=== PATIENT | female | born 1985 | race Caucasian/White ===

== ENCOUNTER 2023-11-07 05:54 | Inpatient (IN) | payer BC, MEDICAID, SELFPAY ==
[2023-11-07] VITALS (97 sets, daily range): BP systolic 127–214; BP diastolic 73–119; PULSE 64–102; TEMP 36–36.9; O2SAT 99–100; BMI 32.1
--- NOTE | 2023-11-07 07:00 | PM.OBGYHP ---
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 Reports they have been getting stronger and closer together. She does report some vaginal bleeding in the form of brown discharge which started after her contractions started. She reports good movement. She denies headache, vision changes, RUQ pain. She does report LE edema that started around 6 months gestation and reports her care provider has been watching it closely and checking her urine for protein which has been normal. She reports care has been good with a physician in [place]. She denies complications in this other than Her prior was complicated by pre-eclampsia- she does not recall if she was treated with magnesium. She was started on 81mg ASA in this but stopped taking because it kept waking her up at night. She reports her labs have been normal and her GBS culture was negative. 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 PFSH: Medical History History of pre-eclampsia Surgical History Hx of appendectomy History History History 2 Term 1 0 Miscarriages/Ectopic 0 Living Children 1 Vitals/I&O/Wt Last Vital Signs Pulse 72 11/07/23 06:56 BP 168/97 11/07/23 06:56 O2 Del Method Room Air 11/07/23 05:27 Weight last 48 hrs Weight 218 lb Physical Exam Narrative: FHT Category 1- baseline 125, moderate variability, +accel, no decels Const: COMMON NORMALS: healthy appearing, alert and well nourished OTHER: in discomfort with contractions Resp: COMMON NORMALS: normal respiratory effort and clear to auscultation bilaterally Cardio: COMMON NORMALS: regular rate, regular rhythm, S1 normal heart sound present, S2 normal heart sound present and No murmurs present (Cardio) GI: OTHER: Gravid, uterine size consistent with dates Admission SVE reported 3/50/-3 per nursing Extremity: NARRATIVE EXTREMITY EXAM: 2+ pitting edema to level of the knees Psych: COMMON NORMALS: mental status grossly normal Data 11/07/23 06:45 11/07/23 06:45 Results Labs OB ([facility]): Blood Type Pending 11/07/23 Antibody Screen Pending 11/07/23 Hct 39.1 % (36-47) 11/07/23 Hgb 13.60 g/dL (11.27-16.99) 11/07/23 Rho(D) Type Pending 11/07/23 Plt Count 182 10^3/cmm (157-399) 11/07/23 Uric Acid Pending 11/07/23 A&P Assessment and plan (1) Term : (2) Elevated blood pressure complicating in third trimester, antepartum: (3) Uterine contractions: Plan 38yo at 39w2d admitted for labor. Complicated by elevated blood pressures on admission. There have been non-sustained severe range blood pressures which is complicated by pain from her contractions. Case has been discussed with Dr. Ward- plan to consult for any severe features as they identified. Routine CBC, type and screen, pre-eclampsia work-up with additional CMP, Uric Acid, Urine Pr/Cr. As we do not have prental labs at this time basic labs will be sent as well. Since admission FHT have been Category I. Continuous EFM. Monitor BP- report any severe range BPs. Reported GBS negative- GBS ppx not indicated. Fentanyl protocol for pain control, May have epidural as desired. Expectant management otherwise at this time- if no SVE progression on next change, consider pitocin augmentation. Attestations Medical Necessity Statement*: darryl rincon's hospital stay will require greater than 2 midnights for labor and delivery and care Coding Level of Care Code Acute Code for Chg Fwd Diagnoses Term Z34.90 Elevated blood pressure complicating in third trimester, antepartum O16.3 Uterine contractions O47.9
[2023-11-07 07:02] LABS: Basophils % 0.3 %; Eosinophils # 0.1 10^3/uL (0.0-0.8); Eosinophils % 1.1 %; Hematocrit 39.1 % (36-47); Lymphocytes # 1.3 10^3/uL (0.8-4.8); Lymphocytes % 12.8 %; Mean Corpuscular HGB Conc 34.8 g/dL (30-55); Mean Corpuscular Hemoglobin 33.6 pg (27-33); Mean Corpuscular Volume 96.5 fl (85-98); Mean Platelet Volume 12.1 fL (7.4-10.4); Monocytes # 0.5 10^3/uL (0.2-0.9); Monocytes % 5.4 %; Neutrophils # 8.03 10^3/uL (1.8-7.7); Neutrophils % 79.7 %; Nucleated Red Blood Cells % 0 %; Platelet Count 182 10^3/cmm (157-399); Red Blood Count 4.05 10^6/uL (3.85-5.65); White Blood Count 10.07 10^3/uL (3.29-11.43)
[2023-11-07 07:04] LABS: Glucose Urine UA Norm (Normal); Ketones Urine Negative (Negative); Protein Urine Neg (Negative); Specific Gravity, Urine 1.005 (1.005-1.030); Urine Appearance Clear (CLEAR); Urine Color Colorless (Yellow); pH Urine 7 (5-7)
[2023-11-07] MEDS: lactated ringers 1,000 ML 999 ML IV (07:04)
[2023-11-07 07:05] LABS: Add Urine Culture? No; Add Urine Microscopic? YES; Bacteria Urine TRACE /hpf; Bilirubin Urine Neg (Negative); Blood Urine 3+ (Negative); Leukocyte Esterase Urine Negative (Negative); Nitrate Urine Negative (Negative); RBC Urine 0-4 /hpf (0-2); Squamous Epithelial Cell Urine RARE /hpf (0-5); Urobilinogen Urine Norm (Negative)
[2023-11-07 07:18] LABS: Urine Creatinine 18 mg/dL (28-217); Urine Protein Random 12 mg/dL
[2023-11-07 07:18] LABS: Alanine Aminotransferase 25 U/L (0-33); Albumin Level 3.6 g/dL (3.5-5.2); Alkaline Phosphatase 313 U/L (35-105); Anion Gap 17.2 (5-19); Aspartate Amino Transferase 31 U/L (0-32); Blood Urea Nitrogen 9 mg/dL (6-20); Calcium 8.9 mg/dL (8.5-10.5); Carbon Dioxide 20 mmol/L (22-29); Chloride 102 mmol/L (98-107); Creatinine Clr Calc Pharmacy 136.3688; Globulin 3.3 g/dL (1.3-4.6); Glomerular Filtration Rate 93.6 mL/min (90-130); Glucose 89 mg/dL (65-115); Osmolality Calculated 278 mOsm/kg (285-295); Potassium 4.2 mmol/L (3.5-5.1); Sodium 135 mmol/L (136-145); Total Bilirubin 0.3 mg/dL (0.15-1.2); Total Protein 6.9 g/dL (6.6-8.7); Uric Acid 4.6 mg/dL (2.4-5.7)
--- NOTE | 2023-11-07 07:26 | PM.MISC ---
Miscellaneous Note Purpose of Documentation: Transfer of Care Note: Following initial H&P patient noted to have sustained severe range blood pressures. Case further discussed with Dr. Ward and decision made to transfer care and primary admission to Dr. Ward. He indicated acceptance. All further management of labor, delivery and care is transferred to Dr. Ward at this time.
[2023-11-07 07:38] LABS: UPRO/UCREAT Ratio 0.67 mg/mg CR
[2023-11-07] MEDS: ondansetron 2 mg/ML SDV 2 mL 4 MG IVP ×2 (08:04→14:27)
[2023-11-07] MEDS: dextrose 5%-lactated ringers 1,000 ML 125 ML IV (08:10)
[2023-11-07] MEDS: labetalol 5 mg/mL SDV 20mL 20 MG IVP ×3 (08:11→19:01)
[2023-11-07] MEDS: ROPivacaine syringe 100 MG/50 ML SYRINGE 10 MG EPIDURAL ×3 (08:35→16:56)
--- NOTE | 2023-11-07 08:46 | P.ANESASSM_ITS ---
Pre-Anesthetic Assessment Height/Weight: Height 1.75 m Weight 98.883 kg Temp Pulse BP Pulse Ox O2 Del Method 98.1 F 80 149/98 100 Room Air 11/07/23 07:09 11/07/23 08:34 11/07/23 08:34 11/07/23 08:33 11/07/23 05:27 Preop Diagnosis: Active Labor IUP Labor Epidural Familial anesthetic complications: None Was Beta Don taken within 24 hours: Yes Social No alcohol and No tobacco Exam alert, oriented x 3 and clear to auscultation bilaterally Airway Submandibular: within normal limits Cervical ROM: within normal limits Mallampati: Class II Dentition: full History/ROS No significant history except as noted Pulmonary None reported CV/HEM None reported None reported Hepatic None reported GI Gastroesophageal Reflux Disease Metabolic None reported Musc/skel None reported Neuropsych None reported Anesthetic Plan ASA status: 3 Anesthesia: Regional (specify below) Other: Labor Epidural Medications/Allergies Home Medications Medication Instructions Recorded Confirmed Last Taken Type No Known Home Medications 11/07/23 11/07/23 Unknown History Allergies Allergy/AdvReac Type Severity Reaction Status Date / Time Penicillins Allergy ADR-Vomitin Verified 11/07/23 09:08 g Current Medications Generic Name Dose Route Start Last Admin Trade Name Freq PRN Reason Stop Dose Admin Lactated Ringer's 1,000 mls @ 999 mls/hr 11/07/23 07:03 11/07/23 07:04 Lactated Ringers IV 999 mls/hr .Q1H1M PRN Administration See label comments Labetalol HCl 20 mg 11/07/23 05:57 11/07/23 08:11 Labetalol 5 Mg/Ml Sdv 20ml IVP 20 mg PRN PRN Administration HYPERTENSION Protocol Ondansetron HCl 4 mg 11/07/23 05:54 11/07/23 08:04 Ondansetron 2 Mg/Ml Sdv 2 Ml IVP 4 mg Q4H PRN Administration NAUSEA AND VOMITING Additional Medication Information Patient denies diagnosis of pre-eclampsia in current , however her protein creatinine ration is elevated. Presents in active labor with elevated blood pressures labetalol given prior to epidural. [facility] Anesthesia Medical History History of pre-eclampsia Surgical History Hx of appendectomy Female Reproductive History : 2 Data Anesthesia 11/07/23 06:45 11/07/23 06:45 Short CBC 11/07/23 Range/Units 06:45 WBC 10.07 (3.29-11.43) 10^3/uL Hgb 13.60 (11.27-16.99) g/dL Hct 39.1 (36-47) % MCV 96.5 (85-98) fl Plt Count 182 (157-399) 10^3/cmm Neut % (Auto) 79.7 % Neut # (Auto) 8.03 H (1.8-7.7) 10^3/uL BMP 11/07/23 06:45 Sodium 135 L Potassium 4.2 Chloride 102 Carbon Dioxide 20 L BUN 9 Creatinine 0.7 Glucose 89 Calcium 8.9 Liver Function 11/07/23 Range/Units 06:45 Total Bilirubin 0.3 (0.15-1.2) mg/dL AST 31 (0-32) U/L ALT 25 (0-33) U/L Alkaline Phosphatase 313 H (35-105) U/L Albumin 3.6 (3.5-5.2) g/dL Urine 11/07/23 Range/Units 05:30 Urine Color Colorless (Yellow) Urine Appearance Clear (CLEAR) Urine pH 7 (5-7) Ur Specific [place] 1.005 (1.005-1.030) Urine Protein Neg (Negative) Urine Glucose (UA) Norm (Normal) Urine Ketones Negative (Negative) Urine Nitrate Negative (Negative) Urine Bilirubin Neg (Negative) Ur Leukocyte Esterase Negative (Negative) Urine RBC 0-4 H (0-2) /hpf Urine WBC None (0-5) /hpf Blood Bank 11/07/23 06:45 Blood Type O Positive Rho(D) Type Rh positive Antibody Screen Negative Cardiac Studies: 2 No Data to Display Anesthesia Procedures Epidural Time Out Performed: Yes Consents Signed: Procedure Consent Consent: from patient, risks and benefits reviewed and patient agrees to proceed Lumbar Level: L3-L4 Epidural position: sitting Epidural procedure: sterile prep of area, 1% lidocaine to numb the area, negative for paresthesia passed, test dose given, 1.5% xylocaine 1:200k epi, placed PCEA, no systemic response, sterile dressing applied, L.U.D. no apparent complications and 0.2% Ropiavacaine @ mls/hr (10) Additional Comments: CARO at 7 cm on second attempt catheter threaded to 12cm. 100mcg Fentanyl given with remaining lidocaine and saline in epidural kit. Sterile dressing applied, adequate pain relief achieved.
[2023-11-07] MEDS: magnesium sulfate premix 4 GM/100 ML PREMIX IV (08:49)
[2023-11-07] MEDS: magnesium sulfate premix 20 GM/500 ML BAG IV ×2 (09:19→19:00)
--- NOTE | 2023-11-07 09:20 | PM.OBGYHP ---
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 EDC November 11, 2023 At 39 w 3 d care in [place] with Dr. Jorgensen Had early dating ultrasound No complications Had normal 1-h glucola Has negative GBS Presents to L&D c/o painful UCs No fluid leakage, bleeding + swelling in lower extremities + active movements POBHx: x one at term, had elevated BPs at term, [place], [place] PMHx: none PSHx: appendectomy Present Details : 2 Para: 1 Labs Rubella: Immune RPR: Negative GBS: Negative Medications/Allergies Home Medications Medication Instructions Recorded Confirmed Last Taken Type No Known Home Medications 11/07/23 11/07/23 Unknown History Allergies Allergy/AdvReac Type Severity Reaction Status Date / Time Penicillins Allergy ADR-Vomitin Verified 11/07/23 09:08 g PFSH 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 PFSH: Medical History History of pre-eclampsia Surgical History Hx of appendectomy History History History 2 Term 1 0 Miscarriages/Ectopic 0 Living Children 1 Vitals/I&O/Wt Last Vital Signs Temp 98.2 F 11/07/23 21:36 Pulse 76 11/08/23 05:06 BP 131/72 11/08/23 05:06 Pulse Ox 100 11/07/23 08:33 O2 Del Method Room Air 11/07/23 07:00 11/07/23 11/07/23 11/08/23 14:59 22:59 06:59 Intake Total 1296.583 / 2820.425 5008.033 / 2922.616 Output Total 400 / 400 930 / 1330 1125 / 2455 Balance 896.583 / 896.583 696.033 / 1592.616 -1125 / 467.616 Weight last 48 hrs Weight 218 lb Physical Exam Narrative: Weight 218 lbs; 5?8? BPs 180 / 101, 179 / 103, 176 / 98, 177 / 82 Awake, alert, appropriate In discomfort due to uterine contractions HEENT normal Lungs: clear Cor: RRR Abd: nontender Fundal height 37 cm, cephalic Cervix: 5 cm / 50% / -3 Ext: 2-3 + edema to knees External monitor: + regular UCs heart tracing good variability, + accelerations Urinary Catheter Management: Mahajan: Cath Placed During This Visit: yes, but has since been removed by the nurse Reason for Continuing Indwelling Catheter: Accurate Measurement of Urinary Output in Critically Ill Patients Urinary Catheter Date of Insertion: 11/07/23 Urinary Catheter Time of Insertion: 18:00 Date Urinary Catheter Removed: 11/07/23 Time Urinary Catheter Discontinued: 15:34 Data 11/07/23 06:45 11/07/23 06:45 Results Labs OB ([facility]): Blood Type O Positive 11/07/23 Antibody Screen Negative 11/07/23 Hct 39.1 % (36-47) 11/07/23 Hgb 13.60 g/dL (11.27-16.99) 11/07/23 Rho(D) Type Rh positive 11/07/23 Plt Count 182 10^3/cmm (157-399) 11/07/23 Hep Bs Antigen Non-reactive (Nonreactive) 11/07/23 Rubella IgG Antibody 59.5 IU/mL (0.0-10.0) H 11/07/23 RPR Nonreactive (Nonreactive) 11/07/23 HIV 1&2 Ab & HIV 1 Ag Non-reactive (Non-Reactiv) 11/07/23 C.trachomatis RNA (TMA) Pending 11/07/23 N.gonorrhoeae RNA (TMA) Pending 11/07/23 Chlamydia/GC Comment Pending 11/07/23 Uric Acid 4.6 mg/dL (2.4-5.7) 11/07/23 Urine Opiates Screen Negative ng/mL (Negative) 11/07/23 Ur Barbiturates Screen Negative ng/mL (Negative) 11/07/23 Ur Phencyclidine Scrn Negative ng/mL (Negative) 11/07/23 Ur Amphetamines Screen Negative ng/mL (Negative) 11/07/23 U Benzodiazepines Scrn Negative ng/mL (Negative) 11/07/23 Urine Cocaine Screen Negative ng/mL (Negative) 11/07/23 U Marijuana (THC) Screen Positive ng/mL (Negative) H 11/07/23 A&P Assessment and plan (1) Uterine contractions: 39 w 3 d Fetus reassuring Active labor (2) Term : (3) Elevated blood pressure complicating in third trimester, antepartum: Patient with pre-eclampsia Start MgSO4, 4 Gms bolus, 2 Gms / hr Patient requests epidural Attestations Medical Necessity Statement*: patient at 39+ weeks, presents with active labor, with pre-eclampsia Coding Level of Care Code Acute Code for Chg Fwd Diagnoses Uterine contractions O47.9 Term Z34.90 Elevated blood pressure complicating in third trimester, antepartum O16.3 Time Spent (min) 90
[2023-11-07 10:28] LABS: Amphetamines Screen Urine Negative (Negative); Barbiturates Screen Urine Negative (Negative); Benzodiazepines Screen Urine Negative (Negative); Cocaine Screen Urine Negative (Negative); Opiate Screen Urine Negative (Negative); PCP Screen Urine Negative (Negative); THC Screen Urine Positive (Negative)
[2023-11-07 10:49] LABS: Rapid Plasma Reagin Syphilis Nonreactive (Nonreactive)
[2023-11-07 10:56] LABS: HIV 1 & 2 Antibody Non-Reactive (Non-Reactiv); HIV 1 & 2 Antigen Non-Reactive (Non-Reactiv)
[2023-11-07 11:03] LABS: Rubella IgG 59.5 IU/mL (0.0-10.0)
[2023-11-07 11:43] LABS: Hepatitis B Surface Antigen Non-Reactive (Nonreactive)
[2023-11-07] MEDS: oxytocin 30 UNIT/500 ML BAG IV (12:45)
[2023-11-07] MEDS: acetaminophen 325 mg Tablet 650 MG PO ×2 (13:17→21:03)
--- NOTE | 2023-11-07 18:05 | PM.DELIVERY ---
Delivery Note: Date of delivery: November 07, 2023 Pre-delivery diagnoses: 39 w 3 d active labor preeclampsia Post-delivery diagnoses: same as above vaginal delivery Procedure: labor augmentation vaginal delivery Op report anesthesia: Epidural Delivering Physician: Kevin Ward MD Estimated blood loss (mL): 300 Findings: , vigorous Normal placenta and cord Cord gases and blood obtained No episiotomy 2 cm laceration inferior to clitoris + bleeding Well-controlled with pressure No sutures used EBL: 300 cc No complications Pre-Delivery Course: normal labor progress Delivery: vaginal Post-Delivery Status: good History History History 2 Term 1 0 Miscarriages/Ectopic 0 Living Children 1 A&P Assessment and plan (1) Vaginal delivery: plan care (2) Elevated blood pressure complicating in third trimester, antepartum: plan continue MgSo4 x 24 hours plan Procardia 30 mg XL one PO daily Coding Level of Care Code Acute Code for Chg Fwd Diagnoses Vaginal delivery O80 Elevated blood pressure complicating in third trimester, antepartum O16.3 Time Spent (min) 90
[2023-11-07] MEDS: NIFEdipine ER (24 hr) 30 mg Tablet PO (21:03)
[2023-11-08] VITALS (30 sets, daily range): BP systolic 111–173; BP diastolic 68–87; PULSE 63–97; RESP 16; TEMP 36.6; O2SAT 99
[2023-11-08] MEDS: acetaminophen 325 mg Tablet 650 MG PO ×2 (03:16→10:19)
[2023-11-08] MEDS: dextrose 5%-lactated ringers 1,000 ML 100 ML IV (07:38)
[2023-11-08] MEDS: magnesium sulfate premix 20 GM/500 ML BAG IV (07:41)
[2023-11-08 07:49] LABS: Mean Corpuscular HGB Conc 34.5 g/dL (30-55); Mean Corpuscular Hemoglobin 33.7 pg (27-33); Mean Corpuscular Volume 97.6 fl (85-98); Mean Platelet Volume 12.3 fL (7.4-10.4); Platelet Count 188 10^3/cmm (157-399); Red Blood Count 3.38 10^6/uL (3.85-5.65); Red Cell Distribution Width 13.4 % (12.1-15.1); White Blood Count 15.78 10^3/uL (3.29-11.43)
[2023-11-08] MEDS: docusate sodium 100 mg Capsule PO ×2 (10:19→18:19)
[2023-11-08] MEDS: NIFEdipine ER (24 hr) 30 mg Tablet PO (10:19)
[2023-11-08] MEDS: prenatal vitamin Capsule 1 CAP PO (10:19)
[2023-11-08] MEDS: ibuprofen 800 mg tablet PO ×3 (10:19→20:04)
--- NOTE | 2023-11-08 12:05 | P.PN_ITS ---
BREASTER Subjective 2 Subjective: Interval history: no c/o no headaches, dizziness, nausea, abdominal pain, bleeding normal lochia eating, voiding, ambulating well Labor: Station: 0 Amniotic Membrane Status: Ruptured Monitor Mode: External Contraction Pattern: Irregular Vitals/I&O/Wt Last Vital Signs Temp 98.3 F 11/09/23 13:00 Pulse 76 11/09/23 13:00 Resp 16 11/09/23 13:00 BP 143/83 11/09/23 13:00 Pulse Ox 98 11/09/23 13:00 O2 Del Method Room Air 11/08/23 21:00 Physical Exam 2 Narrative: afebrile BPs 139 / 72, 139 / 81, 129 / 70 comfortable, awake, alert Abd: soft, nontender. fundus firm Ext: 1+ edema; nontender Urinary Catheter Management: Mahajan: Cath Placed During This Visit: yes, but has since been removed by the nurse Reason for Continuing Indwelling Catheter: Decision to DC Catheter Urinary Catheter Date of Insertion: 11/07/23 Urinary Catheter Time of Insertion: 18:00 Date Urinary Catheter Removed: 11/08/23 Time Urinary Catheter Discontinued: 18:00 Data 11/08/23 05:35 11/07/23 06:45 A&P Assessment and plan (1) Vaginal delivery: PPD #1 doing well normal course continue care (2) Preeclampsia: BPs much better after starting Procardia 30 mg XL Plan continue MgSO4 for 24-hours after delivery Attestations 2 Medical Necessity Statement*: patient with preeclampsia at term, s/p vaginal delivery Coding Level of Care Code Acute Code for Chg Fwd Diagnoses Vaginal delivery O80 Preeclampsia O14.90 Time Spent (min) 30
[2023-11-08 17:00] LABS: Chlamydia Trachomatis RNA TMA NOT DETECTED (NOT DETECTED); Neisseria Gonorrhoeae RNA, TMA NOT DETECTED (NOT DETECTED)
[2023-11-08] MEDS: lanolin oint 7 gm 1 APPLIC TOPICAL (20:03)
[2023-11-08] MEDS: benzocaine-menthol 78 gm Canister 1 SPRAY TOPICAL (20:03)
[2023-11-09 06:01] VITALS: BP 127/79; PULSE 64; PULSE 72; O2SAT 98
[2023-11-09] MEDS: ibuprofen 800 mg tablet PO (08:22)
[2023-11-09] MEDS: docusate sodium 100 mg Capsule PO (08:22)
[2023-11-09] MEDS: prenatal vitamin Capsule 1 CAP PO (08:22)
[2023-11-09] MEDS: NIFEdipine ER (24 hr) 30 mg Tablet PO (08:25)
[2023-11-09 10:00] VITALS: BP 156/84; PULSE 76; RESP 16; TEMP 36.4; O2SAT 98
[2023-11-09 13:00] VITALS: BP 143/83; PULSE 76; RESP 16; TEMP 36.8; O2SAT 98
--- NOTE | 2023-11-09 13:35 | P.PN_ITS ---
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 fundus firm Ext: 1+ edema; nontender Urinary Catheter Management: Mahajan: Cath Placed During This Visit: yes, but has since been removed by the nurse Reason for Continuing Indwelling Catheter: Decision to DC Catheter Urinary Catheter Date of Insertion: 11/07/23 Urinary Catheter Time of Insertion: 18:00 Date Urinary Catheter Removed: 11/08/23 Time Urinary Catheter Discontinued: 18:00 Data 11/08/23 05:35 11/07/23 06:45 A&P Assessment and plan (1) Vaginal delivery: PPD #2 doing well discharge to home today instructions and precautions given call/return if fever, chills, headache, blurry vision, nausea, vomiting, abdominal pain; vaginal bleeding or discharge; shortness of breath, chest pain, leg pains or swelling; inability to void, perineal pain or swelling; feelings of depression or mood changes; thoughts of suicide or harming others; inability to care for baby. (2) Preeclampsia: Continue Procardia 30 mg XL one po daily Return for BP check and exam in one week Attestations 2 Medical Necessity Statement*: patient at term with preeclampsia, s/p vaginal delivery, plan discharge to home today Coding Level of Care Code Acute Code for Chg Fwd Diagnoses Vaginal delivery O80 Preeclampsia O14.90 Time Spent (min) 20
--- NOTE | 2023-11-09 13:40 | PM.OBGYDC ---
Discharge Providers WORKERS COMPENSATION CLAIMS EXAMINER Date of Admission: 11/07/23 05:54 Date of Discharge: 11/09/23 Attending Provider at Admission: Marva Jacobsen DO Attending Provider at Discharge: Kevin Ward MD Primary Care Provider: Marva Jacobsen DO Diagnoses at Discharge Discharge Diagnosis (1) Vaginal delivery: Details from hospital stay: 38 y.o. at 39 w 3 d admitted with active labor had significantly elevated BPs diagnosed with preeclampsia started on MgSO4 proceeded to vaginal delivery started on Procardia 30 mg XL daily for continued elevated BPs in the immediate period did well without any complications patient was discharged to home on PPD #2 Status: Acute (2) Preeclampsia: Details from hospital stay: 38 y.o. at 39 w 3 d admitted with active labor had significantly elevated BPs diagnosed with preeclampsia started on MgSO4 proceeded to vaginal delivery started on Procardia 30 mg XL daily for continued elevated BPs in the immediate period did well without any complications patient was discharged to home on PPD #2 Status: Acute Reason for Visit Reason for Visit: brown bleeding, contractions Brief History: 38 y.o. at 39 w 3 d admitted with active labor Hospital Course Hospital Course 38 y.o. at 39 w 3 d admitted with active labor had significantly elevated BPs diagnosed with preeclampsia started on MgSO4 proceeded to vaginal delivery started on Procardia 30 mg XL daily for continued elevated BPs in the immediate period did well without any complications patient was discharged to home on PPD #2 Information Peripartum Data: Infant Delivery Method: Vaginal Laceration description: Periurethral - 1st Degree Episiotomy description: None complications: none Physical Exam Narrative: afebrile, BPs normal comfortable, awake, alert Abd: soft, nontender. fundus firm Ext: 1+ edema; nontender Urinary Catheter Management: Mahajan: Cath Placed During This Visit: yes, but has since been removed by the nurse Reason for Continuing Indwelling Catheter: Decision to DC Catheter Urinary Catheter Date of Insertion: 11/07/23 Urinary Catheter Time of Insertion: 18:00 Date Urinary Catheter Removed: 11/08/23 Time Urinary Catheter Discontinued: 18:00 History History History 2 Term 1 0 Miscarriages/Ectopic 0 Living Children 1 Discharge Data Studies Completed and Pending Laboratory Results WBC 15.78 10^3/uL (3.29-11.43) H 11/08/23 05:35 RBC 3.38 10^6/uL (3.85-5.65) L 11/08/23 05:35 Hgb 11.40 g/dL (11.27-16.99) 11/08/23 05:35 Hct 33.0 % (36-47) L 11/08/23 05:35 MCV 97.6 fl (85-98) 11/08/23 05:35 MCH 33.7 pg (27-33) H 11/08/23 05:35 MCHC 34.5 g/dL (30-55) 11/08/23 05:35 RDW 13.4 % (12.1-15.1) 11/08/23 05:35 Plt Count 188 10^3/cmm (157-399) 11/08/23 05:35 MPV 12.3 fL (7.4-10.4) H 11/08/23 05:35 Neut % (Auto) 79.7 % 11/07/23 06:45 Lymph % (Auto) 12.8 % 11/07/23 06:45 [place] % (Auto) 5.4 % 11/07/23 06:45 Eos % (Auto) 1.1 % 11/07/23 06:45 Baso % (Auto) 0.3 % 11/07/23 06:45 Neut # (Auto) 8.03 10^3/uL (1.8-7.7) H 11/07/23 06:45 Lymph # (Auto) 1.3 10^3/uL (0.8-4.8) 11/07/23 06:45 [place] # (Auto) 0.5 10^3/uL (0.2-0.9) 11/07/23 06:45 Eos # (Auto) 0.1 10^3/uL (0.0-0.8) 11/07/23 06:45 Baso # (Auto) 0.0 10^3/uL (0.0-0.1) 11/07/23 06:45 Nucleated RBC % (auto) 0 % 11/07/23 06:45 Nucleated RBCs # 0.0 /100WBC 11/07/23 06:45 Sodium 135 mmol/L (136-145) L 11/07/23 06:45 Potassium 4.2 mmol/L (3.5-5.1) 11/07/23 06:45 Chloride 102 mmol/L (98-107) 11/07/23 06:45 Carbon Dioxide 20 mmol/L (22-29) L 11/07/23 06:45 Anion Gap 17.2 (5-19) 11/07/23 06:45 BUN 9 mg/dL (6-20) 11/07/23 06:45 Creatinine 0.7 mg/dL (0.5-0.9) 11/07/23 06:45 GFR Calculation 93.6 mL/min (90-130) 11/07/23 06:45 Glucose 89 mg/dL (65-115) 11/07/23 06:45 Calculated Osmolality 278 mOsm/kg (285-295) L 11/07/23 06:45 Uric Acid 4.6 mg/dL (2.4-5.7) 11/07/23 06:45 Calcium 8.9 mg/dL (8.5-10.5) 11/07/23 06:45 Total Bilirubin 0.3 mg/dL (0.15-1.2) 11/07/23 06:45 AST 31 U/L (0-32) 11/07/23 06:45 ALT 25 U/L (0-33) 11/07/23 06:45 Alkaline Phosphatase 313 U/L (35-105) H 11/07/23 06:45 Total Protein 6.9 g/dL (6.6-8.7) 11/07/23 06:45 Albumin 3.6 g/dL (3.5-5.2) 11/07/23 06:45 Globulin 3.3 g/dL (1.3-4.6) 11/07/23 06:45 Urine Color Colorless (Yellow) 11/07/23 05:30 Urine Appearance Clear (CLEAR) 11/07/23 05:30 Urine pH 7 (5-7) 11/07/23 05:30 Ur Specific [place] 1.005 (1.005-1.030) 11/07/23 05:30 Urine Protein Neg (Negative) 11/07/23 05:30 Urine Glucose (UA) Norm (Normal) 11/07/23 05:30 Urine Ketones Negative (Negative) 11/07/23 05:30 Urine Blood 3+ (Negative) H 11/07/23 05:30 Urine Nitrate Negative (Negative) 11/07/23 05:30 Urine Bilirubin Neg (Negative) 11/07/23 05:30 Urine Urobilinogen Norm mg/dL (Negative) 11/07/23 05:30 Ur Leukocyte Esterase Negative (Negative) 11/07/23 05:30 Urine RBC 0-4 /hpf (0-2) H 11/07/23 05:30 Urine WBC None /hpf (0-5) 11/07/23 05:30 Ur Squamous Epith Cells Rare /hpf (0-5) 11/07/23 05:30 Amorphous Sediment Not Reportable 11/07/23 05:30 Urine Bacteria Trace /hpf (NONE) 11/07/23 05:30 U Random Total Protein 12 mg/dL 11/07/23 05:30 Urine Creatinine 18 mg/dL (28-217) L 11/07/23 05:30 Protein/Creatinin Ratio 0.67 mg/mg CR 11/07/23 05:30 Urine Opiates Screen Negative ng/mL (Negative) 11/07/23 05:30 Ur Barbiturates Screen Negative ng/mL (Negative) 11/07/23 05:30 Ur Phencyclidine Scrn Negative ng/mL (Negative) 11/07/23 05:30 Ur Amphetamines Screen Negative ng/mL (Negative) 11/07/23 05:30 U Benzodiazepines Scrn Negative ng/mL (Negative) 11/07/23 05:30 Urine Cocaine Screen Negative ng/mL (Negative) 11/07/23 05:30 U Marijuana (THC) Screen Positive ng/mL (Negative) H 11/07/23 05:30 RPR Nonreactive (Nonreactive) 11/07/23 06:45 C.trachomatis RNA (TMA) Not detected (NOT DETECTED) 11/07/23 05:30 Chlamydia/GC Comment See note 11/07/23 05:30 Hep Bs Antigen Non-reactive (Nonreactive) 11/07/23 06:45 HCV RNA (PCR) IUs/ml <1.18 not detected Log IU/mL (NOT DETECTED) 11/07/23 06:45 HCV RNA (PCR) IU log10 <15 not detected IU/mL (NOT DETECTED) 11/07/23 06:45 HIV 1&2 Ab & HIV 1 Ag Non-reactive (Non-Reactiv) 11/07/23 06:45 HIV 1&2 Antibody Non-reactive (Non-Reactiv) 11/07/23 06:45 N.gonorrhoeae RNA (TMA) Not detected (NOT DETECTED) 11/07/23 05:30 Rubella IgG Antibody 59.5 IU/mL (0.0-10.0) H 11/07/23 06:45 Blood Type O Positive 11/07/23 06:45 Rho(D) Type Rh positive 11/07/23 06:45 Antibody Screen Negative 11/07/23 06:45 Procedures Performed labor augmentation vaginal delivery MgSO4 IV Vitals Last Vital Signs Temp 98.3 F 11/09/23 13:00 Pulse 76 11/09/23 13:00 Resp 16 11/09/23 13:00 BP 143/83 11/09/23 13:00 Pulse Ox 98 11/09/23 13:00 O2 Del Method Room Air 11/08/23 21:00 Results Labs OB ([facility]): Blood Type O Positive 11/07/23 Antibody Screen Negative 11/07/23 Hct 33.0 % (36-47) L 11/08/23 Hgb 11.40 g/dL (11.27-16.99) 11/08/23 Rho(D) Type Rh positive 11/07/23 Plt Count 188 10^3/cmm (157-399) 11/08/23 Hep Bs Antigen Non-reactive (Nonreactive) 11/07/23 Rubella IgG Antibody 59.5 IU/mL (0.0-10.0) H 11/07/23 RPR Nonreactive (Nonreactive) 11/07/23 HIV 1&2 Ab & HIV 1 Ag Non-reactive (Non-Reactiv) 11/07/23 C.trachomatis RNA (TMA) Not detected (NOT DETECTED) 11/07/23 N.gonorrhoeae RNA (TMA) Not detected (NOT DETECTED) 11/07/23 Chlamydia/GC Comment See note 11/07/23 Uric Acid 4.6 mg/dL (2.4-5.7) 11/07/23 Urine Opiates Screen Negative ng/mL (Negative) 11/07/23 Ur Barbiturates Screen Negative ng/mL (Negative) 11/07/23 Ur Phencyclidine Scrn Negative ng/mL (Negative) 11/07/23 Ur Amphetamines Screen Negative ng/mL (Negative) 11/07/23 U Benzodiazepines Scrn Negative ng/mL (Negative) 11/07/23 Urine Cocaine Screen Negative ng/mL (Negative) 11/07/23 U Marijuana (THC) Screen Positive ng/mL (Negative) H 11/07/23 Discharge Plan Discharge Patient Disposition: Home Condition: Stable Prescriptions: New Procardia XL 30 mg tablet extended release 24hr 30 mg PO DAILY Qty: 30 0RF Discharge Orders: Discharge Order (Routine); Ordered 11/09/23 Ordered By: Kevin Ward Referrals: Kevin Ward MD [Physician] - (November 16 at 1:[address] Ward.) Discharge Diet: Usual diet Discharge Activity: Increase activity as tolerated Patient Instructions: Depression (DC), Preeclampsia and Eclampsia After Delivery (GEN), Hemorrhage (DC), OB Discharge Report, OB Food/Drug Interaction Guide, OB Care at Home, Opioid Safety, OB Vaginal Deliveries, Abnormal Bleeding Discharge Attestations WORKERS COMPENSATION CLAIMS EXAMINER Time Spent in Discharge Care*: less than 30 min Coding Level of Care Code Acute Code for Chg Fwd Diagnoses Vaginal delivery O80 Preeclampsia O14.90 Time Spent (min) 20
[2023-11-09 14:55] LABS: HEP C RNA Viral Load Quant <1.18 NOT DETECTED Log IU/mL (NOT DETECTED); HEP C RNA Viral Load Quant <15 NOT DETECTED IU/mL (NOT DETECTED)
--- NOTE | 2023-11-10 06:57 | ANE.PACU2 ---
Inpatient post-anesthesia follow up: Airway intact: Yes Vital signs: Temperature 98.3 F Pulse Rate 76 Respiratory Rate 16 Blood Pressure 143/83 Pulse Oximetry 98 Oxygen Delivery Me thod Room Air Oxygen Flow Rate Fraction of Inspir ed Oxygen Hydration adequate: Yes Nausea and vomiting: No Pain level: 1 Mental status: Baseline Epidural Start/End: Epidural Start Date: 11/07/23 Epidural Start Time: 08:04 Epidural End Date: 11/07/23 Epidural End Time: 18:25
== END 2023-11-09 13:00 | disposition home or self-care (01) | DRG 807 ==
LOC: OPOB 07:18 → OBGYN 07:18
PROVIDERS: Obstetrics & Gynecology; Admitting Provider Family Medicine; PCP Family Medicine; Visit Provider Family Medicine
DX: O14.94 Unspecified pre-eclampsia, complicating childbirth (principal); Z37.0 Single live birth; Z3A.39 39 weeks gestation of pregnancy
CPT/HCPCS: 36415; 51702; 59409; 80053; 80306; 81001; 82570; 84156; 84550; 85025; 85027; 86592; 86762; 86850; 86900; 87340; 87491; 87522; 87591; 87806; 96374; 96376; J2405; J2590; J2795; J3010; J3475; J3490; J7120; J7121